=== PATIENT | female | born 1970 | race Caucasian/White ===

== ENCOUNTER → 2016-05-10 | Emergency (ER) | payer OTHER ==
[~2016-05-10] MED LIST: FAMOTIDINE 20 MG/50 ML IVPB 50 ML IVPB ONE; MAG HYDROX/AL HYDROX/SIMETH 30 ML UNIT-DOSE CUP ONE; MAG HYDROX/AL HYDROX/SIMETH 30 ML UNIT-DOSE CUP PO ONE; ONDANSETRON 4 MG/2 ML VIAL IVPUSH ONE; ONDANSETRON 4 MG/2 ML VIAL ONE; PANTOPRAZOLE SODIUM 40 MG VIAL ONE; PANTOPRAZOLE SODIUM 40 MG in SODIUM CHLORIDE 100 ML IVPB ONE; SODIUM CHLORIDE 1,000 ML IV STA; SUCRALFATE 1 GM TABLET (FP) ONE; SUCRALFATE 1 GM TABLET (FP) PO ONE
[2016-05-10 13:44] VITALS: BMI 21.5
--- NOTE | 2016-05-10 14:41 | PDOC ---
History of Present Illness - General Chief Complaint: Pain Stated Complaint: ABD. PAIN Time Seen by Provider: 05/10/16 14:11 History Source: Patient - History of Present Illness Timing/Duration: reports: intermittent Quality: reports: burning Abdominal Pain Onset Location: reports: epigastric Past History - Past Medical History Allergies/Adverse Reactions: Allergies Allergy/AdvReac Type Severity Reaction Status Date / Time No Known Allergies Allergy Verified 05/10/16 13:43 Home Medications: Ambulatory Orders Famotidine [Pepcid] 20 mg PO DAILY #14 tablet 05/10/16 Mag Hydrox/Al Hydrox/Simeth [Mylanta Suspension -] 30 ml PO Q6H #1 bottle Other medical history: denies - Immunization History Immunization Up to Date: Yes - Psycho/Social/Smoking Cessation Hx Suicidal Ideation: No Smoking History: Never smoked Information on smoking cessation initiated: No Hx Alcohol Use: No Drug/Substance Use Hx: No Substance Use Type: None Review of Systems - Review of Systems Constitutional: No: Chills, Fever Respiratory: No: Shortness of Breath Cardiac (ROS): No: Chest Pain ABD/GI: Yes: Nausea, Vomiting. No: Diarrhea : No: Dysuria *Physical Exam - Vital Signs Last Vital Signs Temp Pulse Resp BP Pulse Ox 97.4 F L 86 18 124/70 100 05/10/16 13:42 05/10/16 13:42 05/10/16 13:42 05/10/16 13:42 05/10/16 13:42 - Physical Exam Comments: 05/10/16 14:40 Patient lying on stretcher with hand covering epigastric area, complaining of pain General Appearance: Yes: Appropriately Dressed, Moderate Distress HEENT: positive: Normal Voice Neck: positive: Supple Respiratory/Chest: positive: Lungs Clear, Normal Breath Sounds. negative: Respiratory Distress Cardiovascular: positive: Regular Rate, S1, S2 Gastrointestinal/Abdominal: positive: Tender, Soft (sig ttp to epigastrium, NT to RUQ, no CVAT) Musculoskeletal: negative: CVA Tenderness Extremity: positive: Normal Inspection Integumentary: positive: Dry, Warm Neurologic: positive: Fully Oriented, Alert, Normal Mood/Affect ED Treatment Course - LABORATORY CBC & Chemistry Diagram: 05/10/16 14:58 05/10/16 14:58 Medical Decision Making - Medical Decision Making 05/10/16 14:37 Patient is a 46-year-old female. Denies any past medical history, here with severe epigastric pain that started several hours ago, shortly after eating plantains with cheese as per patient. Had 4-5 episodes of non-bloody, non- bilious nausea, vomiting. No change in bowel movements, fever, chills, chest pain or shortness of breath. Denies history of similar episode. See exam Epigastric pain M/l gastritis/GERD, r/o jayesh, less likely cardiac -pepcid/maalox -ekg/labs r/o other source -reassess 05/10/16 16:40 Pt reports sig improvement w/ meds and able to richard po in ED. Dc w/ GI referral as needed *DC/Admit/Observation/Transfer Diagnosis at time of Disposition: Epigastric pain - Discharge Dispostion Disposition: HOME Condition at time of disposition: Improved - Prescriptions Prescriptions: Mag Hydrox/Al Hydrox/Simeth [Mylanta Suspension -] 30 ml PO Q6H #1 bottle Famotidine [Pepcid] 20 mg PO DAILY #14 tablet - Referrals Referrals: Dorian Quigley MD [Primary Care Provider] - Gui Ward MD [Staff Physician] - - Patient Instructions Printed Discharge Instructions: Gastritis Additional Instructions: Take medication as directed and follow up with Dr Ward of GI if pain reoccurs Print Language: BELARUSIAN
[2016-05-10 15:05] LABS: BASOPHIL 0.4 % (0-2.0); EOSINOPHIL 1.7 % (0-4.5); MCH 29.5 pg (25.7-33.7); MEAN CELL VOLUME 89.2 fl (80-96); MEAN PLT VOLUME 9.6 fl (7.5-11.1); NEUTROPHILS 72.3 % (42.8-82.8); PLATELET COUNT 217 K/MM3 (134-434); RDW 13.3 % (11.6-15.6); WHITE BLOOD COUNT 9.8 K/mm3 (4.0-10.0)
[2016-05-10 15:06] LABS: URINE APPEARANCE CLEAR; URINE BILIRUBIN NEGATIVE (NEGATIVE); URINE BLOOD NEGATIVE (NEGATIVE); URINE COLOR LTYELLOW; URINE GLUCOSE (UA) NEGATIVE (NEGATIVE); URINE KETONE NEGATIVE (NEGATIVE); URINE NITRITE NEGATIVE (NEGATIVE); URINE UROBILINOGEN NEGATIVE E.U./dl (0.2-1.0)
[2016-05-10 15:08] LABS: URINE LEUK ESTERASE TRACE (NEGATIVE); URINE PROTEIN 1+ (NEGATIVE)
[2016-05-10 15:12] LABS: URINE BACTERIA RARE /hpf (NONE SEEN); URINE HYALINE CAST 1 /lpf; URINE RBC 4 /hpf (0-3); URINE WBC 1 /hpf (3-5)
[2016-05-10 15:28] LABS: ALBUMIN 3.8 g/dl (3.4-5.0); ANION GAP 12 (8-16); BILIRUBIN,TOTAL 0.3 mg/dL (0.2-1.0); CALCIUM 9.1 mg/dL (8.5-10.1); CO2 26 mmol/L (21-32); CREATININE 0.6 mg/dL (0.55-1.02); GLUCOSE,RANDOM 87 mg/dL (74-106); SGPT/ALT 42 U/L (12-78); TOT PROT 7.7 g/dl (6.4-8.2)
[2016-05-10 15:32] LABS: ALK PHOS 107 U/L (45-117); TROPONIN I < 0.02 ng/ml (0.00-0.05)
[2016-05-10 15:37] LABS: SGOT/AST 29 U/L (15-37)
[2016-05-10 16:56] VITALS: BP 123/70; PULSE 87; TEMP 98.3
--- NOTE | 2016-05-10 20:58 | EKG ---
Test Reason : Blood Pressure : / mmHG Vent. Rate : 075 BPM Atrial Rate : 075 BPM P-R Int : 126 ms QRS Dur : 080 ms QT Int : 352 ms P-R-T Axes : 067 056 050 degrees QTc Int : 393 ms NORMAL SINUS RHYTHM NONSPECIFIC T WAVE ABNORMALITY ABNORMAL ECG NO PREVIOUS ECGS AVAILABLE Confirmed by CHELLE FLORENCE, MEG ([id number]) on 05/10/2016 8:57:39 PM Referred By: Confirmed By:MEG CORBETT MD
== END | disposition home or self-care (01) ==
LOC: JER 13:36
PROC: 3E033GC Introduction of Other Therapeutic Substance into Peripheral Vein, Percutaneous Approach (ICD-10-PCS; principal; 2016-05-10)
PROC: 3E033GC Introduction of Other Therapeutic Substance into Peripheral Vein, Percutaneous Approach (ICD-10-PCS; 2016-05-10)
PROC: 3E033GC Introduction of Other Therapeutic Substance into Peripheral Vein, Percutaneous Approach (ICD-10-PCS; 2016-05-10)
DX: K29.70 Gastritis, unspecified, without bleeding (principal)
CPT/HCPCS: 36415; 80053; 81003; 81015; 82550; 83690; 84484; 84703; 85025; 93005; 93010; 96365; 96367; 96374; 99283-25

== ENCOUNTER 2016-08-06 18:12 | Emergency (ER) | payer OTHER ==
[2016-08-06 18:24] VITALS: BP 131/69; PULSE 96; TEMP 98.2; BMI 21.5
[2016-08-06] MEDS ORDERED: CYCLOBENZAPRINE HCL 10 MG TABLET (FP) PO ONE (19:08)
[2016-08-06] MEDS ORDERED: KETOROLAC TROMETHAMINE 60 MG/2 ML VIAL IM ONE (19:08)
[2016-08-06] MEDS ORDERED: CYCLOBENZAPRINE HCL 10 MG TABLET (FP) ONE (19:16)
[2016-08-06] MEDS ORDERED: KETOROLAC TROMETHAMINE 60 MG/2 ML VIAL ONE (19:16)
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
== END 2016-08-06 19:43 | disposition home or self-care (01) ==
LOC: JERFT 18:12 → JER 18:12 → JERFT 19:43
PROC: 3E0233Z Introduction of Anti-inflammatory into Muscle, Percutaneous Approach (ICD-10-PCS; principal; 2016-08-06)
DX: M54.2 Cervicalgia (principal); M62.838 Other muscle spasm; S46.001A Unspecified injury of muscle(s) and tendon(s) of the rotator cuff of right shoulder, initial encounter; V43.52XA Car driver injured in collision with other type car in traffic accident, initial encounter; Y92.414 Local residential or business street as the place of occurrence of the external cause; Y93.89 Activity, other specified
CPT/HCPCS: 84703; 99281-25

== ENCOUNTER 2018-10-05 19:50 | Emergency (ER) | payer OTHER ==
[2018-10-05] MEDS ORDERED: ASPIRIN 81 MG CHEWABLE TABLETS PO ONE (19:52)
--- NOTE | 2018-10-05 19:52 | PDOC ---
Rapid Medical Evaluation Time Seen by Provider: 10/05/18 19:51 Medical Evaluation: Allergies Allergy/AdvReac Type Severity Reaction Status Date / Time No Known Allergies Allergy Verified 10/26/17 15:12 10/05/18 19:51 HPI: Chest pain since this afternoon PE: No gross deficits: ORDERS: Cardiac work up and U preg Discharge Disposition - Diagnosis Chest pain - Referrals - Patient Instructions - Post Discharge Activity
[2018-10-05 19:59] VITALS: BP 129/81; PULSE 81; TEMP 97.5; BMI 24.1
--- NOTE | 2018-10-06 08:23 | EKG ---
Test Reason : Blood Pressure : / mmHG Vent. Rate : 070 BPM Atrial Rate : 070 BPM P-R Int : 136 ms QRS Dur : 084 ms QT Int : 378 ms P-R-T Axes : 078 071 054 degrees QTc Int : 408 ms NORMAL SINUS RHYTHM NONSPECIFIC T WAVE ABNORMALITY ABNORMAL ECG WHEN COMPARED WITH ECG OF 26-OCT-2017 17:42, NONSPECIFIC T WAVE ABNORMALITY NO LONGER EVIDENT IN INFERIOR LEADS Confirmed by RAMY FLORENCE, RICKY ([id number]) on 10/06/2018 8:23:03 AM Referred By: Confirmed By:RICKY MCCANN MD
== END 2018-10-05 20:00 | disposition left against medical advice (07) ==
LOC: JER 19:50
DX: R07.9 Chest pain, unspecified (principal)
CPT/HCPCS: 93005; 93010; 99281-25